=== PATIENT | female | born 1955 | race Two or more races ===

== ENCOUNTER 2024-11-19 19:04 | Emergency (ER) | payer MEDICARE, OTHER ==
[~2024-11-19] VITALS: Ht 162.6 cm; Wt 77.1 kg
[2024-11-19] MEDS ORDERED: DICL100G34 TP (20:52)
[2024-11-19] MEDS ORDERED: ACET-2030 PO (20:52)
[2024-11-19] MEDS ORDERED: oxyCODONE/APAP (5/325 MG) 1 UDTAB TABLET ONE (21:26)
[2024-11-19 21:28] VITALS: BP 123/83; TEMP 98; O2SAT 97
[2024-11-19] MEDS: oxyCODONE/APAP (5/325 MG) 1 UDTAB TABLET PO ONE (21:28)
== END 2024-11-19 21:29 | disposition home or self-care (01) ==
LOC: ER 19:05
DX: S80.12XA Contusion of left lower leg, initial encounter (principal); S80.11XA Contusion of right lower leg, initial encounter; S60.00XA Contusion of unspecified finger without damage to nail, initial encounter; S60.222A Contusion of left hand, initial encounter; S60.221A Contusion of right hand, initial encounter; S80.02XA Contusion of left knee, initial encounter; S80.01XA Contusion of right knee, initial encounter; I11.9 Hypertensive heart disease without heart failure; R51.9 Headache, unspecified; Z86.79 Personal history of other diseases of the circulatory system; V43.52XA Car driver injured in collision with other type car in traffic accident, initial encounter; Y93.89 Activity, other specified; Y92.488 Other paved roadways as the place of occurrence of the external cause; Y99.8 Other external cause status
CPT/HCPCS: 70450-TC; 73120-TC; 73560-TC; 73590-TC